=== PATIENT | female | born 1955 | race Caucasian/White ===

== ENCOUNTER 2016-11-26 07:36 | Emergency (ER) | payer BC ==
[2016-11-26] MEDS ORDERED: KETOROLAC 60 MG/2 ML VIAL IM STA (07:49)
[2016-11-26] MEDS ORDERED: KETOROLAC 60 MG/2 ML VIAL ONE (07:54)
[2016-11-26] MEDS ORDERED: HYDROmorphone 1 MG/ML SYRINGE IM STA (08:45)
[2016-11-26] MEDS ORDERED: HYDROmorphone 1 MG/ML SYRINGE ONE (08:46)
== END 2016-11-26 09:09 | disposition home or self-care (01) ==
DX: M54.2 Cervicalgia (principal); I10 Essential (primary) hypertension; Z98.1 Arthrodesis status; G89.29 Other chronic pain; M54.9 Dorsalgia, unspecified
CPT/HCPCS: 72125; 96372; 99283; J1170